=== PATIENT | female | born 1955 ===

== ENCOUNTER 2016-06-25 13:59 | Emergency (ER) | payer OTHER ==
[2016-06-25 14:09] VITALS: TEMP 99.8
[2016-06-25] MEDS ORDERED: Albuterol-Ipratrop 3 mg / 0.5 (3 ml) UD ONE (14:21)
[2016-06-25] MEDS ORDERED: Albuterol-Ipratrop 3 mg / 0.5 (3 ml) UD IH STA ×2 (14:23→16:13)
[2016-06-25 14:27] VITALS: O2SAT 100
--- NOTE | 2016-06-25 14:27 | ED PDOC ---
HPI: SOB/CHF/COPD Time Seen by Provider: 06/25/16 14:08 Chief Complaint (Nursing): Shortness Of Breath Chief Complaint (Provider): Shortness Of Breath History Per: Patient History/Exam Limitations: no limitations Onset/Duration Of Symptoms: Days Current Symptoms Are (Timing): Still Present Initiating Event: Upper Respiratory Illness Quality: Tightness Exacerbating Factor(s): Coughing Current Respiratory Medications: See Home Med List Severity: Mild Additional Complaint(s): Patient is a 61 year old female with a history of asthma, presents to ED for evaluation of cough and fever for 4 days. Patient states cough is productive of white sputum and has pain with inspiration. Denies chest pain, palpations, neck pain or hemoptysis. Also notes mild SOB. Past Medical History Reviewed: Historical Data, Nursing Documentation, Vital Signs Vital Signs: Last Vital Signs Temp 99.8 F H 06/25/16 14:07 Pulse 107 H 06/25/16 14:22 Resp 12 06/25/16 14:23 BP 138/61 06/25/16 14:07 Pulse Ox 100 06/25/16 14:28 - Medical History PMH: Asthma - Surgical History Surgical History: Cholecystectomy - Family History Family History: States: Unknown Family Hx - Living Arrangements Living Arrangements: With Family - Immunization History Hx Tetanus Toxoid Vaccination: Yes Hx Influenza Vaccination: Yes Hx Pneumococcal Vaccination: No - Home Medications Home Medications: Ambulatory Orders Medication Instructions Recorded hydrOXYzine HCl [Atarax] 25 mg PO Q6H PRN #30 tab 07/13/15 Albuterol HFA [Ventolin HFA 90 2 puff IH [id number] PRN 07/26/15 mcg/actuation (8 g)] Azithromycin [Zithromax Tri-Eddie] 500 mg PO DAILY 07/26/15 DiphenhydrAMINE [Benadryl] 25 mg PO Q6H PRN #30 cap 07/26/15 Epinephrine [Epipen 2-Eddie] 0.3 mg IJ ONCE PRN #1 auto.injct 07/26/15 Famotidine [Pepcid] 1 tab PO DAILY #14 tab 07/26/15 Pantoprazole Sodium [Protonix] 40 mg PO DAILY 07/26/15 Prednisone 20 mg PO DAILY #21 tablet 07/26/15 Albuterol HFA [Ventolin HFA 90 2 puff IH Q4H #1 puff 06/25/16 mcg/actuation (8 g)] Azithromycin [Zithromax] 250 mg PO DAILY #6 tab 06/25/16 predniSONE [predniSONE Tab] 10 mg PO TID #15 tab 06/25/16 - Allergies Allergies/Adverse Reactions: Allergies Allergy/AdvReac Type Severity Reaction Status Date / Time kiwi Allergy RASH Verified 07/26/15 13:33 peanut Allergy RASH Verified 07/26/15 13:33 hydroxyzine AdvReac RASH Verified 07/28/15 15:26 Review of Systems ROS Statement: Except As Marked, All Systems Reviewed And Found Negative Constitutional: Positive for: Fever, Chills ENT: Negative for: Ear Pain, Nose Congestion, Throat Pain Cardiovascular: Negative for: Chest Pain Respiratory: Positive for: Cough, Shortness of Breath, Pleuritic Pain, Sputum Gastrointestinal: Negative for: Vomiting, Diarrhea Skin: Negative for: Rash Physical Exam - Reviewed Nursing Documentation Reviewed: Yes Vital Signs Reviewed: Yes - Physical Exam Appears: Positive for: Non-toxic, No Acute Distress Skin: Positive for: Normal Color, Warm Eye Exam: Positive for: Normal appearance Neck: Positive for: Normal, Painless ROM Cardiovascular/Chest: Positive for: Regular Rate, Rhythm. Negative for: Murmur Respiratory: Positive for: Rhonchi (scattered). Negative for: Accessory Muscle Use, Wheezing, Respiratory Distress Extremity: Positive for: Normal ROM. Negative for: Pedal Edema Neurologic/Psych: Positive for: Alert, Oriented - ECG O2 Sat by Pulse Oximetry: 100 (RA) Pulse Ox Interpretation: Normal Medical Decision Making Medical Decision Making: Time: 1420 Initial impression: URI r/o pneumonia Initial plan: -- CXR -- Duoneb Scribe Attestation: Documented by Nohemi Licea acting as a scribe for Girish Hart MD. Scribe Attestation: All medical record entries made by the Scribe were at my direction and personally dictated by me. I have reviewed the chart and agree that the record accurately reflects my personal performance of the history, physical exam, medical decision making, and the department course for this patient. I have also personally directed, reviewed, and agree with the discharge instructions and disposition. Disposition - Clinical Impression Clinical Impression: Bronchitis - Patient ED Disposition Is Patient to be Admitted: No Counseled Patient/Family Regarding: Studies Performed, Diagnosis, Need For Followup, Rx Given - Disposition Referrals: [facility] [Outside] Disposition: Routine/Home Disposition Time: 15:56 Condition: FAIR Prescriptions: Albuterol HFA [Ventolin HFA 90 mcg/actuation (8 g)] 2 puff IH Q4H #1 puff Azithromycin [Zithromax] 250 mg PO DAILY #6 tab predniSONE [predniSONE Tab] 10 mg PO TID #15 tab Instructions: Acute Bronchitis (ED) Print Language: BHUTANESE
--- NOTE | 2016-06-25 14:49 | RAD ---
HISTORY: cough COMPARISON: No prior. TECHNIQUE: Chest PA and lateral FINDINGS: LUNGS: Minimal bibasilar atelectasis felt comparison left greater than right There appears to be some minor biapical pleural thickening. PLEURA: No significant pleural effusion identified. No pneumothorax apparent. CARDIOVASCULAR: Normal. OSSEOUS STRUCTURES: Minor degenerative changes both shoulder girdles. Minor multilevel degenerative spondylosis of the thoracic spine. VISUALIZED UPPER ABDOMEN: Normal. OTHER FINDINGS: None. IMPRESSION: Minimal bibasilar atelectasis left greater than right
[2016-06-25 16:38] VITALS: BP 127/88; PULSE 108; RESP 20
== END 2016-06-25 16:45 | disposition home or self-care (01) ==
LOC: H.ER 13:59
DX: J40 Bronchitis, not specified as acute or chronic (principal)